=== PATIENT | female | born 2000 | race Two or more races ===

== ENCOUNTER 2018-02-11 23:42 | Emergency (ER) | payer MEDICAID ==
[~2018-02-11] VITALS: Ht 182.9 cm; Wt 217.6 kg
[~2018-02-11 23:42] MED LIST: ALBU18HF IH; IBUP-1623 PO; METF500T5 PO
[2018-02-11] MEDS ORDERED: VIT C (23:47)
[2018-02-11] MEDS ORDERED: SYNTHROID (23:47)
[2018-02-11] MEDS ORDERED: MODA200T2 PO (23:47)
[2018-02-12] MEDS ORDERED: IRON (00:19)
[2018-02-12] MEDS ORDERED: METFORMIN (00:19)
[2018-02-12 00:53] LABS: ALBUMIN 3.1 g/dL (3.4-5.0); ANION GAP 4 mmol/L (5-15); CALCIUM 8.6 mg/dL (8.5-10.1); CHLORIDE 109 mmol/L (98-107)
[2018-02-12 00:56] LABS: ALANINE AMINOTRANSFERASE 33 U/L (12-78); ALKALINE PHOSPHATASE 84 U/L (45-117); BILIRUBIN,TOTAL 0.7 mg/dL (0.2-1.0); CREATININE 0.91 mg/dL (0.55-1.02); TOTAL PROTEIN 7.5 g/dL (6.4-8.2)
[2018-02-12 01:00] LABS: BASOPHILS # (AUTO) 0.04 x10^3/uL (0-0.3); BASOPHILS % (AUTO) 0 % (0-1); EOSINOPHILS # (AUTO) 0.26 x10^3/uL (0-0.8); EOSINOPHILS % (AUTO) 2 % (1-7); LYMPHOCYTES # (AUTO) 2.25 x10^3/uL (1-6.1); LYMPHOCYTES % (AUTO) 16 % (22-44); MD MORPH REVIEW ONLY; MEAN CORPUSCULAR HEMOGLOBIN 24.2 pg (27.0-34.8); MEAN CORPUSCULAR HGB CONC 32.4 g/dL (32.4-35.8); MEAN CORPUSCULAR VOLUME 74.7 fL (80-100); MEAN PLATELET VOLUME 10.3 fL (7.4-10.4); MONOCYTES # (AUTO) 0.99 x10^3/uL (0-1.4); MONOCYTES % (AUTO) 7 % (2-9); NEUTROPHILS # (AUTO) 10.71 x10^3/uL (1.8-8.0); NEUTROPHILS % (AUTO) 75 % (42-75); PLATELET COUNT 164 x10^3/uL (130-400); RED BLOOD COUNT 4.68 x10^6/uL (3.82-5.3)
[2018-02-12 01:01] LABS: <PLATELET ESTIMATE> ADEQUATE; LARGE PLATELETS 1+
[2018-02-12 01:02] LABS: ANISOCYTOSIS 1+; OVALOCYTES 1+
[2018-02-12 02:11] VITALS: BP 154/84
== END 2018-02-12 02:13 | disposition home or self-care (01) ==
LOC: ED 02-12 00:14
DX: J02.9 Acute pharyngitis, unspecified (principal); R10.9 Unspecified abdominal pain; J45.909 Unspecified asthma, uncomplicated; E11.9 Type 2 diabetes mellitus without complications
CPT/HCPCS: 36415; 71045; 80053; 85025; 87081; 87880; 99285

== ENCOUNTER 2020-01-12 09:32 | Emergency (ER) | payer MEDICAID ==
[~2020-01-12] VITALS: Ht 182.9 cm; Wt 159.0 kg
[~2020-01-12 09:32] MED LIST changes: +IRON; +METF500T17 PO; -METF500T5 PO; +METFORMIN; +MODA200T2 PO; +SYNTHROID; +VIT C
--- NOTE | 2020-01-12 10:16 | NUR ---
Check-in documentation complete, patient resting comfortably in bed, no further needs at this time. Friend at bedside.
[2020-01-12] MEDS ORDERED: ONDA-89 PO (10:21)
[2020-01-12] MEDS ORDERED: PANT20TA3 PO (10:21)
[2020-01-12] MEDS ORDERED: IRON1TAB60 PO (10:21)
[2020-01-12 10:59] LABS: ALANINE AMINOTRANSFERASE 38 U/L (12-78); ALBUMIN 3.2 g/dL (3.4-5.0); ANION GAP 4 mmol/L (5-15); CALCIUM 8.4 mg/dL (8.5-10.1); CHLORIDE 112 mmol/L (98-107); CREATININE 0.68 mg/dL (0.55-1.02)
[2020-01-12 11:03] LABS: ALKALINE PHOSPHATASE 133 U/L (45-117); BILIRUBIN,TOTAL 0.2 mg/dL (0.2-1.0); TOTAL PROTEIN 7.2 g/dL (6.4-8.2); TROPONIN I < 0.015 ng/mL (0.000-0.045)
[2020-01-12 11:04] LABS: MEAN CORPUSCULAR HEMOGLOBIN 18.8 pg (27.0-34.8); MEAN CORPUSCULAR HGB CONC 30.4 g/dL (32.4-35.8); MEAN CORPUSCULAR VOLUME 61.8 fL (80-100); PLATELET COUNT 220 x10^3/uL (130-400); RED BLOOD COUNT 4.08 x10^6/uL (3.82-5.3); RED CELL DISTRIBUTION WIDTH 20.3 % (9.6-15.2)
[2020-01-12 11:05] LABS: BASOPHILS # (AUTO) 0.05 x10^3/uL (0-0.1); BASOPHILS % (AUTO) 1 % (0-1); EOSINOPHILS # (AUTO) 0.15 x10^3/uL (0-0.4); EOSINOPHILS % (AUTO) 2 % (1-7); LYMPHOCYTES # (AUTO) 1.47 x10^3/uL (1-3.4); LYMPHOCYTES % (AUTO) 16 % (22-44); MD MORPH REVIEW ONLY; MONOCYTES # (AUTO) 0.69 x10^3/uL (0.2-0.8); MONOCYTES % (AUTO) 8 % (2-9); NEUTROPHILS % (AUTO) 74 % (42-75)
[2020-01-12 11:07] LABS: ANISOCYTOSIS 1+; MICROCYTOSIS 2+
[2020-01-12 11:08] LABS: HYPOCHROMIA 1+; OVALOCYTES 1+; POLYCHROMASIA 1+
[2020-01-12 11:09] LABS: <PLATELET ESTIMATE> ADEQUATE; LARGE PLATELETS 2+
--- NOTE | 2020-01-12 11:31 | NUR ---
Urine sample collected and sent to lab. Patient is resting comfortably in bed. Vital Signs within normal limits., no further needs at this time.
[2020-01-12 12:06] LABS: MICROSCOPIC INDICATED
[2020-01-12 12:37] VITALS: BP 128/60
--- NOTE | 2020-01-12 12:37 | NUR ---
PT RESTING IN BED, CALL LIGHT IN REACH
--- NOTE | 2020-01-12 13:44 | NUR ---
Patient resting comfortably in bed with friend at bedside. Provider going in to talk with patient about discharge.
--- NOTE | 2020-01-12 13:48 | NUR ---
LUIS A YEUNG AT BEDSIDE TO DISCUSS POC. DISCHARGE INSTRUCTIONS REVIEWED.
== END 2020-01-12 14:05 | disposition home or self-care (01) ==
LOC: ED 10:08
DX: D64.9 Anemia, unspecified (principal); R07.89 Other chest pain; R11.10 Vomiting, unspecified; R10.30 Lower abdominal pain, unspecified
CPT/HCPCS: 36415; 71045; 80053; 81001; 82962; 84484; 84703; 85025; 87086; 93005; 99285

== ENCOUNTER 2020-11-11 11:39 | Emergency (ER) | payer MEDICAID, OTHER ==
[~2020-11-11] VITALS: Ht 185.4 cm; Wt 144.5 kg
[~2020-11-11 11:39] MED LIST changes: +IRON1TAB60 PO; +ONDA-89 PO; +PANT20TA4 PO
--- NOTE | 2020-11-11 12:17 | NUR ---
PA STUDENT BEDSIDE
--- NOTE | 2020-11-11 12:24 | NUR ---
PT C/O LEFT EAR PAIN, DENTAL PAIN, AND LEFT EPISCOPALIAN PAIN. PT STATES THIS STARTED 4 DAYS AGO WITH A HEADACHE AND THEN MOVED TO HER EAR AND THEN TOOTH. PT HAD TUBES PLACED IN EARS 8 YEARS AGO. PAIN 04/05.
[2020-11-11] MEDS ORDERED: HYDROcodone/APAP 5/325 TABLET PO ONE (12:30)
[2020-11-11 12:47] LABS: BASOPHILS % (AUTO) 1 % (0-1); EOSINOPHILS % (AUTO) 1 % (1-7); LYMPHOCYTES % (AUTO) 19 % (22-44); MEAN CORPUSCULAR HEMOGLOBIN 16.9 pg (27.0-34.8); MEAN CORPUSCULAR HGB CONC 30.1 g/dL (32.4-35.8); MONOCYTES % (AUTO) 8 % (2-9); NEUTROPHILS % (AUTO) 72 % (42-75); PLATELET COUNT 174 x10^3/uL (130-400); RED CELL DISTRIBUTION WIDTH 21.5 % (9.6-15.2)
[2020-11-11] MEDS ORDERED: HYDROcodone/APAP 5/325 TABLET ONE (12:59)
[2020-11-11] MEDS ORDERED: METHOCARBAMOL 750 MG TABLET ONE (12:59)
[2020-11-11 13:00] LABS: ALBUMIN 3.4 g/dL (3.4-5.0); ANION GAP 3 mmol/L (5-15); CALCIUM 8.3 mg/dL (8.5-10.1); CHLORIDE 109 mmol/L (98-107); CREATININE 0.56 mg/dL (0.55-1.02)
[2020-11-11] MEDS ORDERED: METHOCARBAMOL 750 MG TABLET PO ONE (13:00)
--- NOTE | 2020-11-11 13:15 | NUR ---
REPORT RC'VD FROM CHACHO BOURGEOIS. PT IN CT NOW.
--- NOTE | 2020-11-11 13:27 | NUR ---
PT MEDICATED PER ORDERS. UNDERSTANDS POC. SISTER AT BS.
[2020-11-11 13:28] LABS: MD MORPH REVIEW ONLY
[2020-11-11 13:30] LABS: ANISOCYTOSIS 1+; HYPOCHROMIA 1+; OVALOCYTES 1+; POLYCHROMASIA 1+
[2020-11-11 13:31] LABS: <PLATELET ESTIMATE> ADEQUATE; MICROCYTOSIS 3+
[2020-11-11] MEDS ORDERED: CEFTRIAXONE 2 GM in DEXTROSE 5% 50 ML IVPB ONE (14:30)
--- NOTE | 2020-11-11 16:15 | NUR ---
RECEIVED REPORT FROM JUICE RN, PT UPRIGHT ON GURNEY AWAKE & MORE COMFORTABLE AFTER MEDS, NAD, NO NEEDS AT THIS TIME, CALL LIGHT WITHIN REACH.
[2020-11-11 17:11] VITALS: BP 138/78
== END 2020-11-11 17:13 | disposition home or self-care (01) ==
LOC: ED 17:07
DX: H70.001 Acute mastoiditis without complications, right ear (principal); D50.0 Iron deficiency anemia secondary to blood loss (chronic); E11.9 Type 2 diabetes mellitus without complications; R51.9 Headache, unspecified
CPT/HCPCS: 36415; 70450; 80048; 82040; 85025; 96365; 99284; J0696